=== PATIENT | female | born 1965 | race Caucasian/White ===

== ENCOUNTER → 2017-03-24 | Emergency (ER) | payer OTHER ==
[~2017-03-24] MED LIST: ACETAMINOPHEN 325 MG TAB PO
[2017-03-24] MEDS: METOCLOPRAMIDE 10 MG INJ IV (23:04)
[2017-03-24] MEDS: SOD CHLORIDE 0.9% 1,000 ML IV (23:04)
[2017-03-24 23:12] LABS: ADD MAN DIFF? NO
[2017-03-24 23:13] LABS: BASOPHILS % 0.3 % (0.0-2.0); HEMOGLOBIN 11.8 g/dl (12.0-16.0); LYMPHOCYTES # 0.6 10^3/ul (0.8-2.9); LYMPHOCYTES % 8.9 % (15.0-51.0); MEAN CORPUSCULAR HGB CONC 31.9 g/dl (32.0-37.0); MEAN CORPUSCULAR VOLUME 87.7 fl (82.0-101.0); MONOCYTE # 0.3 10^3/ul (0.3-0.9); MONOCYTES % 3.7 % (0.0-11.0); NEUTROPHIL # 6.1 10^3/ul (1.6-7.5); NEUTROPHILS % 86.7 % (39.0-77.0); PLATELET COUNT 235 10^3/UL (140-415); RED BLOOD COUNT 4.22 10^6/ul (4.20-5.40); RED CELL DISTRIBUTION WIDTH 13.6 % (11.5-14.5)
[2017-03-24 23:13] LABS: WHITE BLOOD COUNT 7.1 10^3/ul (4.8-10.8)
[2017-03-24 23:38] LABS: ALANINE AMINOTRANSFERASE 68 IU/L (13-69); ALBUMIN 4.3 g/dl (3.3-4.9); ALKALINE PHOSPHATASE 257 IU/L (42-121); ANION GAP 21 (8-16); ASPARTATE AMINO TRANSFERASE 48 IU/L (15-46); BILIRUBIN,INDIRECT 0.3 mg/dl (0-1.1); BILIRUBIN,TOTAL 0.3 mg/dl (0.2-1.3); BLOOD UREA NITROGEN 16 mg/dl (7-20); CALCIUM 10.7 mg/dl (8.4-10.2); CARBON DIOXIDE 27 mmol/L (21-31); CHLORIDE 102 mmol/L (97-110); CREATININE 0.68 mg/dl (0.44-1.00); GLUCOSE 146 mg/dl (70-220); LIPASE 51 U/L (23-300); POTASSIUM 4.4 mmol/L (3.5-5.1); SODIUM 146 mmol/L (135-144); TOTAL PROTEIN 8.2 g/dl (6.1-8.1)
[2017-03-24] MEDS: IBUPROFEN 200 MG TAB PO (23:59)
== END | disposition home or self-care (01) ==
LOC: FTE 19:43
DX: R10.9 Unspecified abdominal pain (principal); E11.9 Type 2 diabetes mellitus without complications
CPT/HCPCS: 36415; 80053; 83690; 85025; 96374; 99284-25

== ENCOUNTER 2018-06-19 13:08 | Emergency (ER) | payer OTHER | END 2018-06-19 14:36 | disposition home or self-care (01) | LOC: FTE 13:08 | DX: B00.1 Herpesviral vesicular dermatitis (principal); B00.9 Herpesviral infection, unspecified | CPT/HCPCS: 99283; Z7502 ==